=== PATIENT | female | born 1960 | race Caucasian/White ===

== ENCOUNTER → 2018-06-18 | Outpatient (CLI) | payer BC ==
[2018-06-18 17:33] LABS: BLOOD UREA NITROGEN 19 mg/dl (7-18); CREATININE 0.99 mg/dl (0.60-1.20)
== END | disposition home or self-care (01) ==
LOC: C.LAB 16:28
PROVIDERS: ATTEND Podiatrist Foot & Ankle Surgery
DX: M72.2 Plantar fascial fibromatosis (principal)